=== PATIENT | male | born 1975 | race Caucasian/White ===

== ENCOUNTER 2016-09-17 16:41 | Emergency (ER) | payer OTHER ==
[~2016-09-17] VITALS: Ht 160 cm; Wt 72.7 kg
[~2016-09-17 16:41] MED LIST: ACET325T96 PO; FLUO10CA48 PO; IBUP-103 PO; LOSA100T65 PO; METH4PAK4 PO
[2016-09-17 16:45] VITALS: TEMP 36.8; O2SAT 98; Ht 160 cm; Wt 72.7 kg
[2016-09-17] MEDS ORDERED: SODIUM CHLORIDE 0.9% 1000ML 1,000 ML IV STA (17:02)
--- NOTE | 2016-09-17 17:03 | EMERGENCY ROOM VISIT NOTE ---
History Report prepared by Yamilethibdenise: Laura Bone Under the Supervision of: Dr. Carl Fernandez M.D. First contact with patient: 16:49 Chief Complaint: INFECTION Stated Complaint: BLOOD POISONING Nursing Triage Summary: pt states he cut his left palm on plastic yesterday. today patient noted red streak going up arm. "I think I have blood poisoning." denies fevers. red streak to elbow. History of Present Illness The patient is a 40 year old male who presents to the Emergency Room with complaints of a possible infection to his left palm. He reports yesterday he cut his palm while trying to fix his truck's window. The area was "sliced by a piece of plastic" and the patient now has a red streak going up his left arm to his left elbow. The patient rates his current pain as a 0/10. He was able to express some pus from the area this morning, but states Neosporin seems to have provided some relief. He denies any recent headache, neck pain, fevers, chills, cough or cold symptoms, abdominal pain, or numbness or weakness to the arm. Source of History: patient Onset: yesterday Position: hand (left palm) Symptom Intensity: 0/10 Modifying Factors (Relieving): other (Neosporin) Associated Symptoms: No fevers, No chills, No headache, No cough (cough or cold symptoms), No neck pain, No abdominal pain, No weakness, No numbness Review of Systems See HPI for pertinent positives & negatives. A total of 10 systems reviewed and were otherwise negative. Past Medical & Surgical Medical Problems: (1) Meningitis Surgical Problems: (1) Hx of tonsillectomy (2) Hx of wisdom tooth extraction Old medical records were reviewed. Nurse's notes were reviewed and I agree with. Family History Heart disease Lung disease Social History Smoking Status: Never Smoker Alcohol Use: occasionally Drug Use: none Marital Status: Housing Status: lives with family Occupation Status: employed Current/Historical Medications Scheduled Cephalexin Monohydrate (Keflex), 500 MG PO QID Clindamycin Hcl (Cleocin), 300 MG PO QID Fluoxetine (Prozac), 10 MG PO DAILY Losartan Potassium (Cozaar), 100 MG PO DAILY Allergies Coded Allergies: No Known Allergies (Unverified , ., 09/17/16) Physical Exam Vital Signs Date Time Temp Pulse Resp B/P (MAP) Pulse Ox O2 Delivery O2 Flow Rate FiO2 09/17/16 19:10 80 20 151/100 09/17/16 16:45 36.8 65 20 155/105 98 Room Air Physical Exam General: The patient is a non-ill appearing middle aged male, well developed, well nourished in no acute distress, breathing comfortably on room air. Normal speech HEENT: Normal cephalic atraumatic. Pupils are equal round and reactive to light. Extraocular movements are intact. Oropharynx is pink with moist mucous membranes. No swelling of the mouth lips or tongue. Neck: Supple with a midline trachea. No meningeal signs or stiffness, no JVD or bruits. No Stridor. Chest: Clear to auscultation bilaterally. No wheezes or rhonchi. No increased work of breathing. Heart: regular rate and rhythm. Abdomen: Soft nontender, nondistended without rebound guarding or rigidity. Extremities: At the base of the right palm, there is a small healing puncture, no redness, pus, or drainage, normal function of the hand. Red streak going up the arm just above the elbow. No cyanosis clubbing or edema. No calf tenderness or assymetry Spine/Back. Non tender to palpation. No CVA tenderness Skin: Good turgor without rashes. Neurologic exam: Cranial nerves two through 12 are intact. Motor and sensation are intact and symmetrical throughout. Medical Decision & Procedures Laboratory Results 09/17/16 17:25 Red Blood Count 5.11, Mean Corpuscular Volume 89.6, Mean Corpuscular Hemoglobin 31.5, Mean Corpuscular Hemoglobin Concent 35.2, Mean Platelet Volume 10.8, Neutrophils (%) (Auto) 66.9, Lymphocytes (%) (Auto) 23.0, Monocytes (%) (Auto) 7.6, Eosinophils (%) (Auto) 2.1, Basophils (%) (Auto) 0.2, Neutrophils # (Auto) 4.14, Lymphocytes # (Auto) 1.42, Monocytes # (Auto) 0.47, Eosinophils # (Auto) 0.13, Basophils # (Auto) 0.01 09/17/16 17:25 Test 09/17/16 17:25 White Blood Count 6.18 K/uL (4.8-10.8) Red Blood Count 5.11 M/uL (4.7-6.1) Hemoglobin 16.1 g/dL (14.0-18.0) Hematocrit 45.8 % (42-52) Mean Corpuscular Volume 89.6 fL (80-100) Mean Corpuscular Hemoglobin 31.5 pg (25-34) Mean Corpuscular Hemoglobin Concent 35.2 g/dl (32-36) Platelet Count 248 K/uL (130-400) Mean Platelet Volume 10.8 fL (7.4-10.4) Neutrophils (%) (Auto) 66.9 % Lymphocytes (%) (Auto) 23.0 % Monocytes (%) (Auto) 7.6 % Eosinophils (%) (Auto) 2.1 % Basophils (%) (Auto) 0.2 % Neutrophils # (Auto) 4.14 K/uL (1.4-6.5) Lymphocytes # (Auto) 1.42 K/uL (1.2-3.4) Monocytes # (Auto) 0.47 K/uL (0.11-0.59) Eosinophils # (Auto) 0.13 K/uL (0-0.5) Basophils # (Auto) 0.01 K/uL (0-0.2) RDW Standard Deviation 42.7 fL (36.4-46.3) RDW Coefficient of Variation 13.0 % (11.5-14.5) Immature Granulocyte % (Auto) 0.2 % Immature Granulocyte # (Auto) 0.01 K/uL (0.00-0.02) Anion Gap 6.0 mmol/L (3-11) Est Creatinine Clear Calc Drug Dose 86.9 ml/min Estimated GFR () 108.4 Estimated GFR (Non- 93.6 BUN/Creatinine Ratio 9.7 (10-20) Calcium Level 9.6 mg/dl (8.5-10.1) Laboratory studies as stated above per my review. Medications Administered Medications (Trade) Dose Ordered Sig/Dayron Route Start Time Stop Time Status Last Admin Dose Admin Sodium Chloride 1,000 ml @ 999 mls/hr Q1H1M STAT IV 09/17/16 17:02 09/17/16 18:02 DC 09/17/16 18:29 999 MLS/HR Cefazolin Sodium (Ancef 1000mg/55 ml D5W) 1,000 mg NOW STAT IV 09/17/16 17:05 09/17/16 17:06 DC 09/17/16 18:30 1,000 MG Clindamycin Phosphate 600 mg/ Dextrose 54 ml @ 108 mls/hr NOW ONCE IV 09/17/16 17:30 09/17/16 17:59 DC 09/17/16 18:29 108 MLS/HR Cephalexin Monohydrate (Keflex 500MG Home Pack) 1 homepack NOW ONCE PO 09/17/16 18:45 09/17/16 18:50 DC 09/17/16 19:05 1 HOMEPACK Clindamycin HCl (Cleocin 150MG Home Pack) 1 homepack UD ONCE PO 09/17/16 18:45 09/17/16 18:50 DC 09/17/16 19:06 1 HOMEPACK ED Course 1654: Past medical records reviewed. The patient was evaluated in room B8, and a complete history and physical examination were performed. 1702: NSS 1000 ml @ 999 mls/hr IV. 1705: Cefazolin Sodium 1000 mg IV. 1713: I reevaluated the patient. He is feeling well. 1730: Clindamycin Phosphate 600 mg/Dextrose 54 ml @ 108 mls/hr IV. 1800: I reevaluated the patient. He is resting comfortably. I discussed his results and discharge instructions and he verbalized complete understanding and agreement. 1845: Cleocin 150 mg 1 homepack PO, Keflex 500 mg 1 homepack PO. Medical Decision The differential diagnoses considered include lymphangitis, cellulitis, sepsis and foreign body. This patient comes in as described above he punctured his hand yesterday the wound itself looks fine there is no pus redness or drainage at this point however his a red streak going up his arm. He has no systemic complaints and is afebrile. IV access was established and the opposite arm. He was given Ancef 1 g IV as well as IV clindamycin 600 mg. Blood testing was obtained including blood cultures. His white count is not elevated. He has no acute electrolyte or metabolic abnormalities. He was given IV fluids he's been normotensive here. He does not want to be admitted and strongly desires to go home. I will send him home on upper Keflex 500 mg 4 times a day as well as clindamycin 300 mg 4 times a day encouraged him to get rechecked tomorrow either here or at his doctor's office and return if he has fever, body aches, increasing redness or warmth, any new problems or concerns. Again he was treated aggressively and refuses admission but was encouraged to have close follow-up tomorrow for recheck and was encouraged to return here at any point if symptoms worsen. Medication Reconcilliation Current Medication List: was personally reviewed by me Blood Pressure Screening Patient's blood pressure: Elevated blood pressure Blood pressure disposition: Referred to PCP Impression Primary Impression: Tamiko Ochoa Attestation The scribe's documentation has been prepared under my direction and personally reviewed by me in its entirety. I confirm that the note above accurately reflects all work, treatment, procedures, and medical decision making performed by me. Departure Information Dispostion Home / Self-Care Prescriptions Clindamycin Hcl (CLEOCIN) 300 Mg Cap 300 MG PO QID for 10 Days, #40 CAP Prov: Carl Fernandez M.D. 09/17/16 Cephalexin Monohydrate (Keflex) 500 Mg Cap 500 MG PO QID for 10 Days, #40 CAP Prov: Carl Fernandez M.D. 09/17/16 Referrals No Doctor, Assigned (PCP) Patient Instructions My [facility] Additional Instructions Rest. Drink plenty of fluids. Use Keflex 500 mg, 4 times a day for 10 days Use clindamycin 300 mg, 4 times a day for 10 days Return if: Increasing pain, fever or chills, redness or warmth, any new problems or concerns Return here or to your doctor's office tomorrow for recheck as well
[2016-09-17] MEDS ORDERED: CEFAZOLIN SOD 1000MG/55 ML D5W IV STA (17:05)
[2016-09-17] MEDS ORDERED: CLINDAMYCIN 600 MG/54 ML D5W IV ONE (17:15)
[2016-09-17] MEDS ORDERED: CLINDAMYCIN IV 600 MG in DEXTROSE 5% ADD-VANTAGE 50ML 50 ML IV ONE (17:30)
[2016-09-17 17:46] LABS: BASO % 0.2 %; BASO ABS # 0.01 K/uL (0-0.2); COMPLETE YES; EOS % 2.1 %; HEMATOCRIT 45.8 % (42-52); IG% 0.2 %; LYMPH ABS # 1.42 K/uL (1.2-3.4); MEAN CELL VOLUME 89.6 fL (80-100); MEAN CORPUSCULAR HEMOGLOBIN 31.5 pg (25-34); MEAN CORPUSCULAR HGB CONC 35.2 g/dl (32-36); MEAN PLATELET VOLUME 10.8 fL (7.4-10.4); MONO % 7.6 %; NEUT % 66.9 %; PLATELET COUNT 248 K/uL (130-400); RED BLOOD COUNT 5.11 M/uL (4.7-6.1); WHITE BLOOD COUNT 6.18 K/uL (4.8-10.8)
[2016-09-17 18:02] LABS: BUN/CREATININE RATIO 9.7 (10-20); CALCIUM 9.6 mg/dl (8.5-10.1); CREATININE 0.99 mg/dl (0.60-1.40)
[2016-09-17] MEDS ORDERED: CEPH500C PO (18:35)
[2016-09-17] MEDS ORDERED: CLIN300C2 PO (18:35)
[2016-09-17] MEDS ORDERED: CEPHALEXIN 500MG HOME PACK 1 EA BTL PO ONE (18:45)
[2016-09-17] MEDS ORDERED: CLINDAMYCIN 150MG HOME PACK PO ONE (18:45)
[2016-09-17 19:10] VITALS: BP 151/100; PULSE 80
== END 2016-09-17 19:12 | disposition home or self-care (01) ==
LOC: C.EDB 16:43
DX: I89.1 Lymphangitis (principal); Z86.61 Personal history of infections of the central nervous system; Z98.890 Other specified postprocedural states; Z79.899 Other long term (current) drug therapy; Z82.49 Family history of ischemic heart disease and other diseases of the circulatory system

== ENCOUNTER 2019-01-25 20:33 | Inpatient (IN) ==
[2019-01-25] MEDS ORDERED: SODIUM CHLORIDE 0.9% 500 ML IV ONE ×2 (20:43→21:57)
[2019-01-25] MEDS ORDERED: FAMOTIDINE 20MG IV PUSH 20 MG/5 ML SYR IV STA (20:49)
--- NOTE | 2019-01-25 20:59 | XRay Report ---
XR chest 1V portable HISTORY: Atypical Chest Pain COMPARISON: Chest 01/04/2019. FINDINGS: The lungs are clear. The heart is normal in size. No pleural effusions. No pneumothorax. Ol d, healed right-sided rib fractures. Questionable small peripheral density within the left lower lung zone is likely due to the overlapping soft tissue/ribs. IMPRESSION: No acute process. Electronically signed by: Waqar Bentley M.D. 01/25/2019 8:58 PM
[2019-01-25 21:31] LABS: Alanine Aminotransferase 106 U/L (12-78); Albumin Globulin Ratio 1.5 (0.9-2); Albumin Level 5.1 gm/dl (3.4-5.0); Alkaline Phosphatase 94 U/L (45-117); Aspartate Aminotransferase 61 U/L (15-37); BUN Creatinine Ratio 11.1 (10-20); Bilirubin,Total 1.1 mg/dl (0.2-1); Blood Urea Nitrogen 10 mg/dl (7-18); Calcium 10.1 mg/dl (8.5-10.1); Carbon Dioxide 26 mmol/L (21-32); Chloride 77 mmol/L (98-107); Est GFR (African American) 114.5; Est GFR (Non-African American) 98.8; Globulin 3.4 gm/dl (2.5-4.0); Glucose 110 mg/dl (70-99); Lipase 184 U/L (73-393); Phosphorus 2.7 mg/dl (2.5-4.9); Potassium 2.7 mmol/L (3.5-5.1); Sodium 118 mmol/L (136-145); Total Protein 8.5 gm/dl (6.4-8.2); Troponin I < 0.015 ng/ml (0-0.045)
[2019-01-25 21:33] LABS: Hematocrit (blood only) 43.3 % (42-52); Mean Corpuscular Hemoglobin 30.9 pg (25-34); Mean Corpuscular Volume 83.8 fL (80-100); Platelet Count 200 K/uL (130-400); Red Blood Count 5.17 M/uL (4.7-6.1); White Blood Count 8.54 K/uL (4.8-10.8)
[2019-01-25 21:54] LABS: Eosinophils # (auto) 0.13 K/uL (0-0.5); Eosinophils % (auto) 1.5 %; Immature Granulocytes # (auto) 0.03 K/uL (0.00-0.02); Immature Granulocytes % (auto) 0.4 %; Lymphocytes # (auto) 1.27 K/uL (1.2-3.4); Lymphocytes % (auto) 14.9 %; Monocytes # (auto) 0.72 K/uL (0.11-0.59); Monocytes % (auto) 8.4 %; Neutrophils # (auto) 6.39 K/uL (1.4-6.5); Neutrophils % (auto) 74.8 %
[2019-01-25] MEDS: POTASSIUM CHLORIDE / WTR 10 MEQ/100 ML PLCT IV SCH ×2 (22:09→23:04)
[2019-01-25] MEDS ORDERED: POTASSIUM CHLORIDE 20 MEQ TABCR PO STA (22:12)
--- NOTE | 2019-01-25 23:44 | History & Physical Report ---
Date of Service January 25, 2019 Assessment & Plan (1) Hyponatremia: Patient is a 43-year-old male PMH anxiety, depression, GERD, lumbar radiculopathy, alcoholism admitted for atypical chest pain and significant electrolyte abnormalities. Hyponatremia with low serum osm -Admit to tele -Trend BMP q4h -Ordered Urine Na/urine K, cortisol level. TSH WNL. -Likely chronic as no acute s/s of hyponatremia -Fluid deficit of 7.4 L -Expect some component of beer potomania, chronic malnutrition, SIADH? -Mixed picture with Urine and serum osm; clinically euvolemic. -Despite alcohol intake pt reports he drinks a lot of free water -Will fluid restrict to 1500cc/day -Consider nephro consult depending on response Atypical CP -Appears to be component of anxiety -initial trop and ekg normal -Trend troponins -CP resolved at time of assessment Daily consumption of alcohol -Pt downplaying intake -Mother unable to give accurate amount of alcohol intake, but states more than 6 beers per night -EtOH level negative on admission, therefore will watch closely for s/s of withdrawal -AWSS protocol in place prn with ativan -Thiamine/folate supplement -Pt uses as coping mechanism for stress Anxiety/Depression -Patient having issues at home, money, etc -Started on zoloft/buspar this week -Pt worried current symptoms related to starting meds -Meds may have unmasked symptoms related to chronic alcohol use, malnutrition -Will hold for now; when patient metabolically stable, consider other medication options -PCP recommended outpatient therapy, pt has not had chance to look into this Daily use of chewing tobacco -Pt goes through 1 can every 2 days -May be related to reflux symptoms -Nicotine patch provided Hypokalemia -Replacing, monitor HTN -Holding HCTZ due to K level -Cont home nifedipine -Pt reports allergy to JAZMIN-i; not on med allergy list -Hydralazine prn Code: Full Dispo: Tele DVTP: lovenox (2) Atypical chest pain: (3) Hypokalemia: (4) Daily consumption of alcohol: (5) Hypertension: (6) Gastroesophageal reflux disease: (7) Anxiety: (8) Depression: History of Present Illness Chief Complaint: L arm pain, chest discomfort Primary Care Provider: SINAN Patel Patient is a 43-year-old male PMH anxiety, depression, GERD, lumbar radiculopathy, alcoholism who presents today with acute chest pain. Patient notes he has been feeling unwell for several days, and has been experiencing some central chest discomfort which worsened suddenly this evening. He believed this was originally due to his GERD, but there was some associated shakiness and anxiety. Patient is very vague and closed off during our interview. Some supplemental history provided by his mother who is in the room. Mother notes that he tends to drink to excess every evening, and has been experiencing anxiety for a long time. He has been feeling nauseated for a few days and has been unable to eat for the past several days. He notes that he gets very poor sleep. Patient reports he drinks approximately 1 or 2 beers per night, however on chart review from a recent PCP visit he noted he drinks 5-6 beers per night. On clarifying this with his mother, she notes that he drinks far more than 5-6 beers per night. Per chart review, patient has a lot of stress going on his life currently due to family issues monetary issues. He recently walked out on his . Of note, patient recently initiated zoloft and buspirone as outpatient in the last few days; unable to tie symptoms directly to meds, but notes things have been worse since starting the meds. Initial work-up in the ER revealed normal CBC, and significant changes to his BMP including a sodium level of 118, potassium level of 2.7, chloride of 77, anion gap of 15, elevated LFTs, negative troponin, normal TSH. Due to the abnormal sodium level urine osm was obtained and was found to be 283. Serum osmolality was found to be 253. EKG with normal sinus rhythm. Allergies Allergy/AdvReac Type Severity Reaction Status Date / Time No Known Allergies Allergy . Verified 01/23/19 10:36 Home Medications Home Medications Medication Instructions Recorded Confirmed Type nifedipine 60 mg tablet,extended 60 mg PO DAILY #30 tab 10/20/18 01/25/19 History release buspirone 10 mg tablet 10 mg PO TID #90 tab 01/23/19 01/25/19 Rx sertraline 25 mg tablet 25 mg PO DAILY #90 tab 01/23/19 01/25/19 Rx sodium chloride 1,000 mg PO BID 30 Days #60 tab 01/26/19 Rx Past Med/Surg History Medical History Anxiety (Acute) Bronchiolitis Depression (Acute) Gastroesophageal reflux disease Hypertension Lumbar radiculopathy, acute (Acute) Meningitis (Resolved) Pneumonia Reactive airway disease Surgical History Hx of tonsillectomy (Resolved) Hx of wisdom tooth extraction (Resolved) Social History Preferred Language: Syriac Communication Ability: Effective Cath Lab Tech Required: No Beliefs That Will Affect Care: None Current Living Situation: Parent Feels Safe at Home: Yes Smoking Status: Never smoker Hx Alcohol Use: Yes Alcohol type: beer Hx Substance Use: No Review of Systems Review of Systems: All systems reviewed & are unremarkable except as noted in HPI & below Constitutional: + malaise, + anorexia and + insomnia Respiratory: no cough and no dyspnea Cardiovascular: + chest pain and + radiating jaw, neck or arm pain Additional Comments: Both symptoms resolved Gastrointestinal: + heartburn and + nausea; no vomiting Neurologic: + tremor(s) Psychiatric: + depression, + anhedonia and + anxiety Physical Exam Physical Exam: General: Unwell-appearing male, in no significant distress. Facial redness HEENT: No scleral icterus, PERRLA with dilated pupils, neck supple. Atraumatic. Moist mucous membranes. Pt with tobacco chew in mouth during exam. Cardiovascular: Regular rate and rhythm, no extra sounds. Pulmonary: Clear to auscultation bilaterally, normal work of breathing. Abdomen: Soft, nontender, +distended, positive bowel sounds. Musculoskeletal: Atraumatic, no peripheral edema. Neurologic: Patient awake alert and oriented x 3, full strength in all 4 extre mities. Cranial nerves 2 through 12 grossly intact. Mild tremor noted. Skin: Warm, dry, no rash Results & Data Vital Signs (Past 12 Hours) Vital Signs Temp Pulse Resp BP Pulse Ox 01/25/19 22:30 89 22 176/111 H 97 01/25/19 22:00 78 20 187/125 H 96 01/25/19 21:30 73 14 188/119 H 98 01/25/19 21:00 83 17 191/121 H 99 01/25/19 20:51 82 18 168/117 H 99 01/25/19 20:45 98 01/25/19 20:36 98.1 F 85 18 198/121 H 99 Laboratory Results 01/26/19 01/25/19 01/25/19 Range/Units 00:23 22:29 21:00 WBC (4.8-10.8) K/uL RBC (4.7-6.1) M/uL Hgb (14.0-18.0) g/dL Hct (42-52) % MCV (80-100) fL MCH (25-34) pg MCHC (32-36) g/dL Plt Count (130-400) K/uL Immature Gran % (Auto) % Neut % (Auto) % Lymph % (Auto) % [place] % (Auto) % Eos % (Auto) % Baso % (Auto) % Immature Gran # (Auto) (0.00-0.02) K/uL Neut # (Auto) (1.4-6.5) K/uL Lymph # (Auto) (1.2-3.4) K/uL [place] # (Auto) (0.11-0.59) K/uL Eos # (Auto) (0-0.5) K/uL Baso # (Auto) (0-0.2) K/uL Sodium 121 L (136-145) mmol/L Potassium 3.0 L (3.5-5.1) mmol/L Chloride 83 L (98-107) mmol/L Carbon Dioxide 24 (21-32) mmol/L Anion Gap 14.0 H (3-11) BUN 9 (7-18) mg/dl Creatinine 0.84 (0.6-1.4) mg/dl Est Cr Clr Drug Dosing 103.1 Est GFR ( Amer) 122.6 Est GFR (Non-Af Amer) 105.7 BUN/Creatinine Ratio 11.2 (10-20) Glucose 82 (70-99) mg/dl Osmolality (280-300) mOsm/kg Calcium 9.4 (8.5-10.1) mg/dl Phosphorus (2.5-4.9) mg/dl Magnesium (1.8-2.4) mg/dl Total Bilirubin (0.2-1) mg/dl AST (15-37) U/L ALT (12-78) U/L Alkaline Phosphatase (45-117) U/L Troponin I < 0.015 (0-0.045) ng/ml Total Protein (6.4-8.2) gm/dl Albumin (3.4-5.0) gm/dl Globulin (2.5-4.0) gm/dl Albumin/Globulin Ratio (0.9-2) Lipase (73-393) U/L TSH (0.300-4.500) uIu/ml Urine Osmolality 283 L (500-800) mOsm/kg Ethyl Alcohol mg/dL < 3.0 (0-3) mg/dl 01/25/19 01/25/19 01/25/19 Range/Units 20:48 20:47 20:47 WBC 8.54 (4.8-10.8) K/uL RBC 5.17 (4.7-6.1) M/uL Hgb 16.0 (14.0-18.0) g/dL Hct 43.3 (42-52) % MCV 83.8 (80-100) fL MCH 30.9 (25-34) pg MCHC 37.0 H (32-36) g/dL Plt Count 200 (130-400) K/uL Immature Gran % (Auto) 0.4 % Neut % (Auto) 74.8 % Lymph % (Auto) 14.9 % [place] % (Auto) 8.4 % Eos % (Auto) 1.5 % Baso % (Auto) 0.0 % Immature Gran # (Auto) 0.03 H (0.00-0.02) K/uL Neut # (Auto) 6.39 (1.4-6.5) K/uL Lymph # (Auto) 1.27 (1.2-3.4) K/uL [place] # (Auto) 0.72 H (0.11-0.59) K/uL Eos # (Auto) 0.13 (0-0.5) K/uL Baso # (Auto) 0.00 (0-0.2) K/uL Sodium 118 L* (136-145) mmol/L Potassium 2.7 L (3.5-5.1) mmol/L Chloride 77 L (98-107) mmol/L Carbon Dioxide 26 (21-32) mmol/L Anion Gap 15.0 H (3-11) BUN 10 (7-18) mg/dl Creatinine 0.93 (0.6-1.4) mg/dl Est Cr Clr Drug Dosing Not Reportable Est GFR ( Amer) 114.5 Est GFR (Non-Af Amer) 98.8 BUN/Creatinine Ratio 11.1 (10-20) Glucose 110 H (70-99) mg/dl Osmolality 253 L (280-300) mOsm/kg Calcium 10.1 (8.5-10.1) mg/dl Phosphorus 2.7 (2.5-4.9) mg/dl Magnesium 2.0 (1.8-2.4) mg/dl Total Bilirubin 1.1 H (0.2-1) mg/dl AST 61 H (15-37) U/L ALT 106 H (12-78) U/L Alkaline Phosphatase 94 (45-117) U/L Troponin I < 0.015 (0-0.045) ng/ml Total Protein 8.5 H (6.4-8.2) gm/dl Albumin 5.1 H (3.4-5.0) gm/dl Globulin 3.4 (2.5-4.0) gm/dl Albumin/Globulin Ratio 1.5 (0.9-2) Lipase 184 (73-393) U/L TSH 2.630 (0.300-4.500) uIu/ml Urine Osmolality (500-800) mOsm/kg Ethyl Alcohol mg/dL (0-3) mg/dl Diagnostic Findings XR chest 1V portable HISTORY: Atypical Chest Pain COMPARISON: Chest 01/04/2019. FINDINGS: The lungs are clear. The heart is normal in size. No pleural effusions. No pneumothorax. Old, healed right-sided rib fractures. Questionable small peripheral density within the left lower lung zone is likely due to the overlapping soft tissue/ribs. IMPRESSION: No acute process. Code Status & VTE Plan Code Status full VTE Prophylaxis Plan VTE Prophylaxis will be ordered: Yes Supervising Physician Co-Signing Physician Notes Attending addendum: I have physically seen this patient, have supervised the medical residents activities, and agree with the H&P unless as otherwise noted. Assessment and Plan: Hyponatremia/hypokalemia with hypo-osmolality- Follow serial BMP every 4 hours. Differential includes the report of jermaine, chronically poor oral intake, SIADH, others. Patient may be explained by drinking large volumes of free water after alcohol cessation a few days ago. Fluid restriction to 1500 cc/day. Chest pain- The patient will be admitted to telemetry for serial cardiac enzymes, serial EKG's, cardiac rhythm monitoring and a 2-D echocardiogram with Dopplers. Remaining orders and notations as noted. Resident Activity Tracking Resident Involvement: Resident Care Provided Care Provided: Adult [facility] Medicine
[2019-01-26] MEDS ORDERED: LORazepam 1 MG/2 ML VIAL IV PRN ×2 (00:10)
[2019-01-26] MEDS ORDERED: ALUMINUM/MAGNESIUM SUSP 30 ML UDC PO PRN (00:10)
[2019-01-26] MEDS ORDERED: LORazepam 3 MG/6 ML VIAL IV PRN (00:10)
[2019-01-26] MEDS ORDERED: ATIVAN IV ALCOHOL WITHDRAWL IV PRN (00:10)
[2019-01-26] MEDS ORDERED: LORazepam 1 MG TAB PO PRN (00:10)
[2019-01-26] MEDS ORDERED: MAGNESIUM HYDROXIDE SUSP 30 ML UDC PO PRN (00:10)
[2019-01-26] MEDS ORDERED: POLYETHYLENE (MIRALAX) 17 GM PACK PO PRN (00:10)
[2019-01-26] MEDS ORDERED: ACETAMINOPHEN 325 MG TAB PO PRN (00:10)
[2019-01-26] MEDS ORDERED: LORazepam 2 MG/4 ML VIAL IV PRN (00:10)
[2019-01-26] MEDS ORDERED: SODIUM CHLORIDE 0.9% 1000ML 1,000 ML IV SCH (00:10)
[2019-01-26] MEDS ORDERED: ONDANSETRON INJ 2 MG/ML 2 ML VIAL IV PRN (00:10)
[2019-01-26] MEDS ORDERED: HydrALAZINE HCL 20 MG/ML VIAL IV PRN (01:00)
[2019-01-26 01:15] LABS: BUN Creatinine Ratio 11.2 (10-20); Blood Urea Nitrogen 9 mg/dl (7-18); Calcium 9.4 mg/dl (8.5-10.1); Carbon Dioxide 24 mmol/L (21-32); Chloride 83 mmol/L (98-107); Creatinine Clr Calc Pharmacy 103.1 ml/min; Est GFR (African American) 122.6; Est GFR (Non-African American) 105.7; Glucose 82 mg/dl (70-99); Sodium 121 mmol/L (136-145)
[2019-01-26 01:20] LABS: Troponin I < 0.015 ng/ml (0-0.045)
--- NOTE | 2019-01-26 02:31 | Emergency Department Note ---
Entered by Madeleine Whitaker acting as a scribe for Zia Pimentel MD History of Present Illness General Chief complaint: Cardiac Assessment Stated complaint: ARM PAIN,HEARTBURN,ANXIETY Time Seen by Provider: 01/25/19 20:41 History of Present Illness Provider complaint: chest pain Onset (ago): hour(s) 6 Location: chest Radiation: extremity (left upper extremity) Pain Consistency: + other (episode) Maximum Pain Intensity: 5 Quality: + burning Associated symptoms: + loss of appetite and + other (started after work while sitting down, lightheaded, has not eaten in 3 days, anxiety, started new medication 2 days ago, drinks 2-3 alcoholic drinks every day); no shortness of breath The patient is a 43 year old male who presents to the ED with complaints of an episode of chest pain that started 6 hours ago. The patient describes the pain as a burning and states that it started after he got off work while he was sitting down. The patient states that this pain radiates down his left arm and he feels lightheaded. The patient notes that he has not eaten in 3 days because his anxiety makes him lose his appetite. The patient notes that he started a new medication 2 days ago. The patient states that he drinks approximately 2-3 alcoholic beverages every day. The patient denies shortness of breath. Home Medications Home Medications Medication Instructions Recorded Confirmed Type hydrochlorothiazide 25 mg tablet 25 mg PO DAILY #90 tab 09/08/18 01/25/19 Rx nifedipine 60 mg tablet,extended 60 mg PO DAILY #30 tab 10/20/18 01/25/19 History release buspirone 10 mg tablet 10 mg PO TID #90 tab 01/23/19 01/25/19 Rx sertraline 25 mg tablet 25 mg PO DAILY #90 tab 01/23/19 01/25/19 Rx Allergies Allergy/AdvReac Type Severity Reaction Status Date / Time No Known Allergies Allergy . Verified 01/23/19 10:36 Past Med/Surg History Medical History Anxiety (Acute) Bronchiolitis Depression (Acute) Gastroesophageal reflux disease Hypertension Lumbar radiculopathy, acute (Acute) Meningitis (Resolved) Pneumonia Reactive airway disease Surgical History Hx of tonsillectomy (Resolved) Hx of wisdom tooth extraction (Resolved) Social History Preferred Language: Lithuanian Communication Ability: Effective [place] Required: No Beliefs That Will Affect Care: None Current Living Situation: Parent Feels Safe at Home: Yes Safety Concerns: Feels Safe At This Time Smoking Status: Never smoker Do You Dip or Chew Tobacco: Yes ; Hx Alcohol Use: Yes Alcohol type: beer Hx Substance Use: No Review of Systems See HPI for pertinent positives & negatives. and A total of 10 systems reviewed and were otherwise negative Physical Exam Vital Signs Vital Signs - 24 hr 01/25/19 20:36 01/25/19 20:45 01/25/19 20:51 Temperature 36.7 C Temperature Source Oral Pulse Rate 85 82 Pulse Rate from SpO2 Sensor 80 Respiratory Rate 18 18 Blood Pressure 198/121 H 168/117 H Blood Pressure Mean 146 132 Blood Pressure Position Sitting Pulse Oximetry 99 98 99 Oxygen Delivery Method Room Air Room Air Sepsis Recent Fever Within 48 Hours No Sepsis New/Unexplained Change in Mental Status No Sepsis Action Taken by Nursing No Action Required 01/25/19 21:00 01/25/19 21:30 01/25/19 22:00 Temperature Temperature Source Pulse Rate 83 73 78 Pulse Rate from SpO2 Sensor 85 80 78 Respiratory Rate 17 14 20 Blood Pressure 191/121 H 188/119 H 187/125 H Blood Pressure Mean 137 129 139 Blood Pressure Position Pulse Oximetry 99 98 96 Oxygen Delivery Method Room Air Sepsis Recent Fever Within 48 Hours Sepsis New/Unexplained Change in Mental Status Sepsis Action Taken by Nursing 01/25/19 22:30 01/25/19 23:00 01/25/19 23:30 Temperature Temperature Source Pulse Rate 89 74 73 Pulse Rate from SpO2 Sensor 89 75 72 Respiratory Rate 22 18 16 Blood Pressure 176/111 H 180/118 H 185/116 H Blood Pressure Mean 116 138 145 Blood Pressure Position Pulse Oximetry 97 98 99 Oxygen Delivery Method Sepsis Recent Fever Within 48 Hours Sepsis New/Unexplained Change in Mental Status Sepsis Action Taken by Nursing GENERAL: Awake, alert, fatigued-appearing, in no distress HENT: Normocephalic, atraumatic. Oropharynx with dry mucous membranes and otherwise unremarkable. EYES: Normal conjunctiva. Sclera non-icteric. NECK: Supple. No nuchal rigidity. FROM. No JVD. RESPIRATORY: Clear to auscultation bilaterally. CARDIAC: Regular rate, normal rhythm. Extremities warm and well perfused. Pulses equal. ABDOMEN: Soft, non-distended. No tenderness to palpation. No rebound or guarding. No masses. RECTAL: Deferred. MUSCULOSKELETAL: Chest examination reveals no tenderness. The back is symmetrical on inspection without obvious abnormality. There is no CVA tenderness to palpation. No joint edema. LOWER EXTREMITIES: Calves are equal size bilaterally and non-tender. No edema. No discoloration. NEURO: Normal sensorium. No sensory or motor deficits noted. SKIN: No rash or jaundice noted. Course Course 2044: Past medical records reviewed. The patient was evaluated in room C9. A complete history and physical exam was performed. 2315: I [facility] the [facility] He will evaluate the patient for further management. Consultations Consultation #1: I discussed the [facility]'s [facility] He will evaluate the patient for further management. Time: 23:15 Administered Medications Hydralazine HCl (Hydralazine Hcl) 10 mg IV Q4H PRN PRN Reason: Hypertension Stop: 02/25/19 00:59 Last Admin: 01/26/19 01:37 Dose: 10 mg Documented by: [id number] Sodium Chloride (Nss 1000ml) 1,000 mls @ 80 mls/hr IV .[id number] [facility] Stop: 02/25/19 00:09 Last Infusion: 01/26/19 03:22 Dose: 80 mls/hr Documented by: [id number] Admin: 01/26/19 00:28 Dose: 150 mls/hr Documented by: [id number] Potassium Chloride (K Justino / Wtr) 10 meq in 100 mls @ 100 mls/hr IV Q1H ELINA Stop: 01/26/19 06:22 Last Admin: 01/26/19 05:12 Dose: 100 mls/hr Documented by: [id number] Infusion: 01/26/19 05:01 Dose: 100 mls/hr Documented by: [id number] Admin: 01/26/19 04:01 Dose: 100 mls/hr Documented by: [id number] Infusion: 01/26/19 04:01 Dose: 0 mls/hr Documented by: [id number] Admin: 01/26/19 02:49 Dose: 100 mls/hr Documented by: [id number] Discontinued Medications Sodium Chloride (Nss) 500 mls @ 999 mls/hr IV .Q31M ONE Stop: 01/25/19 21:13 Last Infusion: 01/25/19 21:43 Dose: 0 mls/hr Documented by: [id number] Admin: 01/25/19 20:54 Dose: 999 mls/hr Documented by: [id number] Famotidine (Pepcid 20mg Iv Push) 20 mg in 5 mls @ 2.5 mls/min IV NOW STA Stop: 01/25/19 20:50 Last Admin: 01/25/19 20:54 Dose: 2.5 mls/min Documented by: [id number] Sodium Chloride (Nss) 500 mls @ 999 mls/hr IV .Q31M ONE Stop: 01/25/19 22:27 Last Infusion: 01/25/19 22:40 Dose: 0 mls/hr Documented by: [id number] Admin: 01/25/19 22:08 Dose: 999 mls/hr Documented by: [id number] Potassium Chloride (K Justino / Wtr) 10 meq in 100 mls @ 100 mls/hr IV Q1H ELINA Stop: 01/25/19 23:59 Last Infusion: 01/25/19 23:59 Dose: 0 mls/hr Documented by: [id number] Admin: 01/25/19 23:04 Dose: 100 mls/hr Documented by: [id number] Infusion: 01/25/19 23:04 Dose: 100 mls/hr Documented by: [id number] Admin: 01/25/19 22:09 Dose: 100 mls/hr Documented by: [id number] Potassium Chloride (Klor-Con M20) 40 meq PO NOW STA Stop: 01/25/19 22:13 Last Admin: 01/25/19 23:04 Dose: 40 meq Documented by: [id number] Medical Decision Making Differential Diagnosis Differential diagnosis: Etiologies such as shingles, musculoskeletal pain, pericarditis, myocarditis, cardiac ischemia, pericardial tamponade, pneumonia, pneumothorax, pleural effusion, hemothorax, pleurisy, aortic pathology, pulmonary embolism, intra- abdominal process, as well as others were considered. Medical Records Attestation: I reviewed the patient's medical records. Home Medications Current Medication List: was personally reviewed by id Laboratory Data Attestation: I reviewed the patient's lab results. Result diagrams: 01/25/19 20:47 01/26/19 00:23 Lab Results 01/25/19 01/25/19 01/25/19 Range/Units 20:47 20:47 20:48 WBC 8.54 (4.8-10.8) K/uL RBC 5.17 (4.7-6.1) M/uL Hgb 16.0 (14.0-18.0) g/dL Hct 43.3 (42-52) % MCV 83.8 (80-100) fL MCH 30.9 (25-34) pg MCHC 37.0 H (32-36) g/dL Plt Count 200 (130-400) K/uL Immature Gran % (Auto) 0.4 % Neut % (Auto) 74.8 % Lymph % (Auto) 14.9 % [place] % (Auto) 8.4 % Eos % (Auto) 1.5 % Baso % (Auto) 0.0 % Immature Gran # (Auto) 0.03 H (0.00-0.02) K/uL Neut # (Auto) 6.39 (1.4-6.5) K/uL Lymph # (Auto) 1.27 (1.2-3.4) K/uL [place] # (Auto) 0.72 H (0.11-0.59) K/uL Eos # (Auto) 0.13 (0-0.5) K/uL Baso # (Auto) 0.00 (0-0.2) K/uL Sodium 118 L* (136-145) mmol/L Potassium 2.7 L (3.5-5.1) mmol/L Chloride 77 L (98-107) mmol/L Carbon Dioxide 26 (21-32) mmol/L Anion Gap 15.0 H (3-11) BUN 10 (7-18) mg/dl Creatinine 0.93 (0.6-1.4) mg/dl Est Cr Clr Drug Dosing Not Reportable Est GFR ( Amer) 114.5 Est GFR (Non-Af Amer) 98.8 BUN/Creatinine Ratio 11.1 (10-20) Glucose 110 H (70-99) mg/dl Osmolality 253 L (280-300) mOsm/kg Calcium 10.1 (8.5-10.1) mg/dl Phosphorus 2.7 (2.5-4.9) mg/dl Magnesium 2.0 (1.8-2.4) mg/dl Total Bilirubin 1.1 H (0.2-1) mg/dl AST 61 H (15-37) U/L ALT 106 H (12-78) U/L Alkaline Phosphatase 94 (45-117) U/L Troponin I < 0.015 (0-0.045) ng/ml Total Protein 8.5 H (6.4-8.2) gm/dl Albumin 5.1 H (3.4-5.0) gm/dl Globulin 3.4 (2.5-4.0) gm/dl Albumin/Globulin Ratio 1.5 (0.9-2) Lipase 184 (73-393) U/L TSH 2.630 (0.300-4.500) uIu/ml Urine Osmolality (500-800) mOsm/kg Ethyl Alcohol mg/dL (0-3) mg/dl 01/25/19 01/25/19 Range/Units 21:00 22:29 WBC (4.8-10.8) K/uL RBC (4.7-6.1) M/uL Hgb (14.0-18.0) g/dL Hct (42-52) % MCV (80-100) fL MCH (25-34) pg MCHC (32-36) g/dL Plt Count (130-400) K/uL Immature Gran % (Auto) % Neut % (Auto) % Lymph % (Auto) % [place] % (Auto) % Eos % (Auto) % Baso % (Auto) % Immature Gran # (Auto) (0.00-0.02) K/uL Neut # (Auto) (1.4-6.5) K/uL Lymph # (Auto) (1.2-3.4) K/uL [place] # (Auto) (0.11-0.59) K/uL Eos # (Auto) (0-0.5) K/uL Baso # (Auto) (0-0.2) K/uL Sodium (136-145) mmol/L Potassium (3.5-5.1) mmol/L Chloride (98-107) mmol/L Carbon Dioxide (21-32) mmol/L Anion Gap (3-11) BUN (7-18) mg/dl Creatinine (0.6-1.4) mg/dl Est Cr Clr Drug Dosing Est GFR ( Amer) Est GFR (Non-Af Amer) BUN/Creatinine Ratio (10-20) Glucose (70-99) mg/dl Osmolality (280-300) mOsm/kg Calcium (8.5-10.1) mg/dl Phosphorus (2.5-4.9) mg/dl Magnesium (1.8-2.4) mg/dl Total Bilirubin (0.2-1) mg/dl AST (15-37) U/L ALT (12-78) U/L Alkaline Phosphatase (45-117) U/L Troponin I (0-0.045) ng/ml Total Protein (6.4-8.2) gm/dl Albumin (3.4-5.0) gm/dl Globulin (2.5-4.0) gm/dl Albumin/Globulin Ratio (0.9-2) Lipase (73-393) U/L TSH (0.300-4.500) uIu/ml Urine Osmolality 283 L (500-800) mOsm/kg Ethyl Alcohol mg/dL < 3.0 (0-3) mg/dl Imaging Data Radiologist's Impression: Radiology results as stated below per my review and the radiologist's interpretation: XR chest 1V portable HISTORY: Atypical Chest Pain COMPARISON: Chest 01/04/2019. FINDINGS: The lungs are clear. The heart is normal in size. No pleural effusions. No pneumothorax. Old, healed right-sided rib fractures. Questionable small peripheral density within the left lower lung zone is likely due to the overlapping soft tissue/ribs. IMPRESSION: No acute process. Electronically signed by: Waqar Bentley M.D. 01/25/2019 8:58 PM ECG Data Attestation: I personally reviewed and interpreted this ECG as follows: Indication: + chest pain Rate (beats per minute): 76 Rhythm: + sinus with SA ECG [place]: + Normal ECG ST segments: no ST depression and no ST elevation ECG Findings: + Other (QTC 414); no PACs and no PVCs Blood Pressure Blood Pressure Findings: Elevated blood pressure Blood Pressure Disposition: further management by hospitalist RYAN Narrative The patient is a pleasant 43-year-old gentleman with a past medical history of hypertension, anxiety, depression, GERD who presents emergency department with constant chest pain per HPI. Of note, the patient reports daily alcohol/beer consumption and reports only 2 beers daily. He denies any history of alcohol withdrawal but cannot remember time he went days without drinking. On arrival patient fatigued appearing but no acute distress, afebrile stable vital signs. Exam the patient appears clinically dry. Exam is otherwise unremarkable. EKG without overt acute ischemia. Chest x-ray negative for acute process. WBC, H/H and platelets within normal limits. Chemistry without acidosis. However sodium 118 with potassium of 2.7 and chloride of 77. AST and ALT slightly elevated at 61 and 106 similar to recent values. EtOH blood level undetectable. Troponin negative/undetectable. Urine and serum awesome was ordered and pending. Findings were reviewed with the patient and family at the bedside. Given no recent lab work for comparison in the setting of no acute development of symptoms to suggest acute hyponatremia, likely represents slowly progressive/chronic hyponatremia in the setting of the patient's beer consumption. Patient was agreeable with recommendation for admission. Case was discussed with Dr. Lewis, [facility] hospitalist, who will evaluate the patient for admission. Impression & Plan Hyponatremia, Atypical chest pain, Hypokalemia, Daily consumption of alcohol Discharge Plan Visit Data *Final* Discharge Date/Time: 01/25/19 23:56 Chief Complaint: Cardiac Assessment Stated Complaint: ARM PAIN,HEARTBURN,ANXIETY ED Provider: Zia Pimentel Discharge Problem: Hyponatremia, Atypical chest pain, Hypokalemia, Daily consumption of alcohol Patient Disposition: Admitted As Inpatient Discharge Instructions Interventions: ED Discharge Assessment Last Done: 01/25/19 23:56 The scribe's documentation has been prepared under my direction and personally reviewed by me in its entirety. I confirm that the note above accurately reflects all work, treatment, procedures, and medical decision making performed by me.
[2019-01-26] MEDS: POTASSIUM CHLORIDE / WTR 10 MEQ/100 ML PLCT IV SCH ×4 (02:49→06:15)
[2019-01-26 06:35] LABS: BUN Creatinine Ratio 10.7 (10-20); Blood Urea Nitrogen 10 mg/dl (7-18); Calcium 9.3 mg/dl (8.5-10.1); Carbon Dioxide 24 mmol/L (21-32); Chloride 89 mmol/L (98-107); Creatinine Clr Calc Pharmacy 96.6 ml/min; Est GFR (African American) 119.7; Est GFR (Non-African American) 103.3; Glucose 95 mg/dl (70-99); Sodium 125 mmol/L (136-145)
[2019-01-26 06:39] LABS: Troponin I < 0.015 ng/ml (0-0.045)
[2019-01-26] MEDS ORDERED: NIFEdipine EXTENDED REL 30 MG TABCR PO SCH (09:00)
[2019-01-26] MEDS ORDERED: FOLIC ACID 1 MG TAB PO SCH (09:00)
[2019-01-26] MEDS ORDERED: NICOTINE 7 MG/24 HR TDSY TD SCH (09:00)
[2019-01-26] MEDS ORDERED: ENOXAPARIN INJ 40 MG/0.4 ML SYR SQ SCH (09:00)
[2019-01-26] MEDS ORDERED: THIAMINE HCL 100 MG TAB PO SCH (09:00)
[2019-01-26 12:40] LABS: BUN Creatinine Ratio 9.1 (10-20); Blood Urea Nitrogen 9 mg/dl (7-18); Calcium 9.4 mg/dl (8.5-10.1); Carbon Dioxide 23 mmol/L (21-32); Chloride 92 mmol/L (98-107); Creatinine Clr Calc Pharmacy 87.8 ml/min; Est GFR (African American) 107.5; Est GFR (Non-African American) 92.7; Glucose 114 mg/dl (70-99); Potassium 3.4 mmol/L (3.5-5.1); Sodium 125 mmol/L (136-145)
[2019-01-26 12:45] LABS: Troponin I < 0.015 ng/ml (0-0.045)
--- NOTE | 2019-01-26 17:36 | Discharge Summary ---
Date of Service January 26, 2019 Admission HPI Per Admitting Provider Patient is a 43-year-old male PMH anxiety, depression, GERD, lumbar radiculopathy, alcoholism who presents today with acute chest pain. Patient notes he has been feeling unwell for several days, and has been experiencing some central chest discomfort which worsened suddenly this evening. He believed this was originally due to his GERD, but there was some associated shakiness and anxiety. Patient is very vague and closed off during our interview. Some supplemental history provided by his mother who is in the room. Mother notes that he tends to drink to excess every evening, and has been experiencing anxie ty for a long time. He has been feeling nauseated for a few days and has been unable to eat for the past several days. He notes that he gets very poor sleep. Patient reports he drinks approximately 1 or 2 beers per night, however on chart review from a recent PCP visit he noted he drinks 5-6 beers per night. On clarifying this with his mother, she notes that he drinks far more than 5-6 beers per night. Per chart review, patient has a lot of stress going on his life currently due to family issues monetary issues. He recently walked out on his . Of note, patient recently initiated zoloft and buspirone as outpatient in the last few days; unable to tie symptoms directly to meds, but notes things have been worse since starting the meds. Initial work-up in the ER revealed normal CBC, and significant changes to his BMP including a sodium level of 118, potassium level of 2.7, chloride of 77, anion gap of 15, elevated LFTs, negative troponin, normal TSH. Due to the abnormal sodium level urine osm was obtained and was found to be 283. Serum osmolality was found to be 253. EKG with normal sinus rhythm. Principal Diagnosis Atypical noncardiac chest pain; hyponatremia Discharge Exam Constitutional WD/WN, vitals as above Eyes + anicteric sclerae ENMT Ears: no hearing impairment Neck trachea midline Respiratory normal respiratory effort, lungs clear to auscultation Cardiovascular RRR, no murmur, no edema Vessels: no JVD Extremities: no edema Gastrointestinal (Abdomen) Inspection/Auscultation: normal bowel sounds Percussion/Palpation: abdomen soft; abdomen nontender Musculoskeletal Head/Neck/Chest: normocephalic and head atraumatic Skin no rashes, warm and dry Neurologic moves all extremities Motor/Sensory: no tremor Psychiatric Orientation: alert and oriented x 3 Eye Contact: good eye contact Motor Behavior: steady gait and station and + tremor (Mild bilateral hands) Speech: normal rate/rhythm/volume of speech Affect: euthymic affect (May be slightly anxious) Suicidal Thoughts: + reports suicidal thoughts and + reports suicidal plan Discharge Data Allergies Allergy/AdvReac Type Severity Reaction Status Date / Time No Known Allergies Allergy . Verified 01/23/19 10:36 Consultations 01/25/19 22:12 ED Decision to Admit Stat 01/26/19 00:10 Consult Case Management - Discharge Planning Routine Hospital Course (1) Atypical chest pain: -Appears to be noncardiac in origin -EKG without ischemic changes, cardiac enzymes negative x3; remains in normal sinus rhythm on monitor --Patient does present with some risk factors to include hypertension, male gender, chewing tobacco use, and family history including MIs on mother side of the family in 40s and 50s -Possibly this was GI related versus anxiety -patient has longstanding issues with acid reflux and is a current daily drinker; also with increasing social stressors -Advised patient to continue to be evaluated if chest pain would occur again due to having risk factors (2) Hyponatremia: -Likely multifactorial to include beer potomania, chronic malnutrition, HCTZ use, also reports a lot of free water intake in addition to alcohol-limited labs to confirm baseline but in a from 2017 at 133 so possibly some chronic element -Patient was recently started on sertraline however given the short nature abuse probably not contributing to significant hyponatremia -Urine and serum awesome's show a mixed picture and patient is euvolemic -At current time patient exhibits no symptoms of hyponatremia and discussed with patient and his mother of signs and symptoms to watch for -On admission sodium was 118 and currently at 125 -patient would like to return home today and given lack of symptoms and hemodynamically stable will allow discharge -plan to have BMP repeated in 3 days with results to PCP and close follow-up next week -Instructed to hold HCTZ and will utilize sodium tablets twice daily until further laboratories obtained (Rx provided for lab work) at which time these could be continued versus discontinued -Ultimately patient may benefit from removal of HCTZ versus lowering the dose - discussed with patient and his mother about initiating a new antihypertensive while in the hospital however they would prefer to follow-up with PCP to discuss this -mother states she does have a blood pressure cuff and will ensure her son monitors his blood pressure until follow-up (3) Daily consumption of alcohol: -Patient appears to be downplaying his current intake -mother predicts it may be more than 6 beers per night and that alcohol is being used as a coping mechanism -AWSS protocol utilized in the hospital however did not require as needed Ativan -Patient has a mild tremor in the bilateral hands and overall calm but presents with some slight anxiety -currently patient does not request assistance with alcohol cessation -Given he does not intend to quit drinking at this time and that he is hemodynamically stable will discharge to help prevent active alcohol withdrawal (4) Anxiety: -Patient is experiencing multiple stressors at home -Recently started on sertraline and BuSpar approximately 3 days ago -Advised how sertraline could contribute to hyponatremia but do recommend to continue this at this time given his significant stressors as this likely was not his underlying cause and he is to follow-up with his PCP to monitor effectiveness (5) Hypertension: -Elevated blood pressures on admission which may correlate with anxiety/stress -BP improved after administering his home medication but was also given IV hydralazine -As discussed above, he was instructed to hold his HCTZ until follow-up -could consider lower dose versus alternative --States he was on JAZMIN inhibitor which caused a cough in the past and therefore would avoid this; given his good response to hydralazine could consider this as a p.o. option -Continue nifedipine 60 mg daily Total Time Total Time Spent Total Time Spent (In Minutes): Greater than 30 minutes Discharge Plan Discharge Items Patient Disposition: Home - Self-Care Reason For Visit: HYPONATREMIA, ANXIETY, CHEST PAIN Discharge Diagnosis: Low Salt Levels Activity: Resume your previous activity Non-emergency contact: Primary Care Provider Call non-emergency contact if: you have any medication questions, your symptoms worsen and you have a fever Follow-up/Referrals: Geni Walker CRNP [Primary Care Provider] - 02/01/19 2:00 pm (Please, follow up with Geni Walker on WednesdayFebruary 01 at 2:00 pm. *If you need to change this appointment, call the office at [phone].) Diet: Regular Ambulatory Orders: Basic Metabolic Panel (Routine) Timeframe: 3 Days Location: Determined by Patient Ordered By: Hoda Li Attending Provider Instructions: Hyponatremia: Low Salt Levels - Your salt level in your blood was low when you came in. It was 118 and normal is between 135-145. On a lab we have from 2017 you were 133 which may be around your normal - Low blood salt levels can come from your diuretic/blood pressure medication. It can also come from drinking too much free water. Alcoholic drinks (predominantly beer) can cause lower levels of salt due to the same idea of a lot of extra fluid but not a lot of electrolytes. You can try and drink some drinks like gatorade that have some electrolytes in it - Likely one of the biggest causes would be the hydrochlorothiazide. It may be best to use something different for blood pressure. Can discuss with your family doctor a different option and should monitor your blood pressure. For now I would recommend stopping the hydrochlorothiazide. But continue your Nifedipine as this can help keep the blood pressure stable. Right now it is 134/85 which is acceptable - As discussed, the new medication Zoloft could cause lower salt levels but since you just started this, this is likely not the cause. - Recommend to have your blood levels check in the next 3-4 days to make sure this continues to trend up. - Will add sodium chloride tablets to take twice a day. Pending your repeat labs and follow-up with your family doctor, will determine if you need to continue these Chest Pain: - Thankfully your cardiac markers are negative and the monitor does not reveal any irregular heart rhythms. This could have been from your heart burn or acid reflux. As well, with the added stressors this can be causing this as well - You do have a couple risk factors such as tobacco use, male gender, high blood pressure history, and family history. It is important to still take chest pain seriously to just make sure it is nothing bad with the heart. Pending Studies at Discharge: No Stand-Alone Forms: My [facility] [employer], Smoking Cessation Medications and DC Order Prescriptions: New sodium chloride 1 gram tablet 1,000 mg PO BID 30 Days Qty: 60 RF: 0 Continued nifedipine 60 mg tablet extended release 60 mg PO DAILY Qty: 30 RF: 0 buspirone 10 mg tablet 10 mg PO TID Qty: 90 RF: 4 sertraline [Zoloft] 25 mg tablet 25 mg PO DAILY Qty: 90 RF: 4 Discontinued hydrochlorothiazide 25 mg tablet 25 mg PO DAILY Qty: 90 RF: 3 Discharge Orders: Discharge Order (Routine); Ordered 01/26/19 Ordered By: Hoda Steel/Other Patient Handouts: Hyponatremia Dc Admission Data Admit Date/Time: 01/25/19 23:38 Attending Provider: Yemi Walter Admit Provider: Odette Ortiz Primary Care Provider: Geni Walker Other Providers: Isaac Lewis Other Interventions: Discharge Summary Assessment (RN) Last Done: 01/26/19 13:50 DC Date/Time DO NOT enter until pt leaves facility: 01/26/19 14:59 Supervising Physician Co-Signing Physician Notes Attending note: patient seen and examined with Hoda Gaston PA-C. I agree with her discharge summary. I personally reviewed the labs and imaging findings. Patient very anxious to leave, pacing in the room, feels the need to drink discussed with him and his mother the multiple reasons for him to have low sodium he drinks alcohol, poor diet so beer potomania a possibility he also takes HCTZ lastly, he admits to drinking a lot of free water in addition to the beer initial sodium low at 118, up to 125 in less than 24 hours no confusion, no neurological deficits - Hyponatremia: most likely the patient has chronic hyponatremia, he has not had lab work in some time certainly the 118 was lower than his baseline, but most likely he lives in the high 120's or around 130 plan is to stop HCTZ as this could be contributing encouraged him to eat more salt, more protein will place on sodium chloride tablet 1gm BID to make sure he gets enough sodium encouraged him to drink less, he admits that this will be difficult, he rizwana emilio drinks more than 6 drinks a day explained that he needs to drink less free water, if thirsty, drink fluids with electrolytes like Gatorade, Vitamin Water will follow up with PCP next week with labs
--- NOTE | 2019-01-28 05:35 | Billing Data ---
Date of Service January 28, 2019 Coding Level of Care Code 38366 OBS Care - Level 3
--- NOTE | 2019-02-02 14:12 | Coding Query ---
CHEST PAIN To promote full compliance with coding requirements relating to patient care physician participation is requested in all cases of machine operator assistant uncertainty. Please assist us with the question(s) below: Please list a more specific chest pain diagnosis or cause of chest pain if known by placing an X within the parenthesis (x) Thank you ! ELMA Stevens CCS ( ) Atypical Chest Pain ( ) Chest Wall Pain ( ) Midsternal Chest Pain ( ) Musculoskeletal Chest Pain ( ) Pleuritic Chest Pain ( ) Substernal Chest Pain ( ) Costochondral Chest Pain ( ) Other (please Specify) (x ) Unable to Determine = MTDD
== END 2019-01-26 14:59 | disposition home or self-care (01) | DRG 313 ==
LOC: ED 20:33 → SUATTDRO 23:38 → 2S 23:38